=== PATIENT | female | born 2000 | race Caucasian/White ===

== ENCOUNTER 2024-03-19 20:27 | Emergency (ER) | payer BC, SELFPAY ==
--- NOTE | ~2024-03-19 | XR_ITS ---
EXAMINATION: XR CHEST 2 VIEWS CLINICAL INFORMATION: Cough and fever. COMPARISON: None. TECHNIQUE: Frontal and lateral views of the chest were obtained. FINDINGS: The heart, great vessels, pulmonary vasculature and mediastinum are normal. The lungs show no focal infiltrate, effusion or pneumothorax. There is no acute osseous abnormality. XR/XR chest 2V IMPRESSION: No active cardiopulmonary disease. Electronically signed by: Elliott Arana MD 03/19/2024 10:48 PM EDT
--- NOTE | 2024-03-19 20:32 | ED_ITS ---
HPI - General Adult General Chief complaint: Nausea/Vomiting/Diarrhea Stated complaint: vomiting/low fever/productive cough Time Seen by Provider: 03/19/24 21:53 Source: patient Mode of arrival: ambulatory Limitations: no limitations History of Present Illness ED Provider: Dr. Guerrier HPI narrative: Patient has been sick since Thursday, now with cough, N/V/D and can't hold anything down Onset (ago): day(s) Related Data Previous Rx's ?Medication ?Instructions ?Recorded ondansetron 4 mg disintegrating 4 mg PO Q8H 4 days #12 tabs 03/20/24 tablet [id number]-[id number] 5 10 ml PO Q4H #473 mL 03/20/24 mg-10 mg-100 mg/5 mL oral liquid Allergies Allergy/AdvReac Type Severity Reaction Status Date / Time prednisone Allergy Severe Unknown Verified 03/19/24 20:35 Review of Systems 2 Review of Systems: Yes all other systems are reviewed and are negative Neurologic: Denies Sensory deficit (Neuro) [facility] Social History Social History Smoked in Last 30 Days: Yes Substance Use Type: Marijuana Advance Directives: No Advance Directives Information Provided: No Do you have a plan to hurt others: No Plan Physical Exam ED Vital Signs: Vital Signs - 24 hr 03/19/24 20:33 03/19/24 21:45 Temperature 98.1 F 98.7 F Pulse Rate 91 92 Respiratory Rate 18 17 Blood Pressure 138/84 135/79 Pulse Oximetry 96 96 Oxygen Delivery Method Room Air Room Air BMI result Body Mass Index 37.0 Const Other: obese female spitting into a bottle Nutritional Appearance: obese Orientation/consciousness: oriented to person and patient oriented x3 Limitations: no limitations HENMT Head: Yes normal to inspection Ears: external ears normal General nose exam: Normal external nose present Mouth: Normal oral and palatal mucosa present and oropharynx normal Throat: Yes posterior oropharynx normal Eyes General: appearance normal, both eyes and all related structures Neck Neck: Yes normal visual inspection Chest Chest palpation & inspection: normal inspection of the chest Resp Auscultation: clear to auscultation bilaterally Cardio Jugular venous distension: no JVD Rate: regular rate Rhythm: regular rhythm Heart sounds: S1 normal heart sound present and S2 normal heart sound present GI Inspection: Yes normal to inspection Palpation (GI): Soft to palpation, nontender and No hepatosplenomegaly present Auscultation: normal bowel sounds General: Yes no CVA tenderness Back/Spine/Pelvis Back: no CVA tenderness Skin General skin exam: no rashes or lesions noted Neuro General: oriented to person and patient oriented x3 Cranial nerves: Yes CN's II-XII intact bilaterally Motor exam (neuro): 5/5 motor strength present throughout Sensory Exam: No Sensory deficit (Neuro) Extrem General: Yes normal to inspection Psych Appearance: grossly normal Course Course Course Narrative: This is a rapid medical exam performed by Penny Carrington NP: Additional HPI, ROS, PE not included below will be deferred to primary provider. Patient is a 23-year-old female presenting with complaint of low grade fever, nausea, vomiting, diarrhea, took Covid test Tue which was negative. States also started menstrual period yesterday. Plan: viral serology, labs Reevaluation(s) Reevaluation #1: CXR negative, viral panel negative will dc on elly man for viral syndrome Time: 00:19 Medications Administered Discontinued Medications Generic Name Dose Route Start Last Admin Trade Name Freq PRN Reason Stop Dose Admin Guaifenesin 20 ml 03/19/24 22:04 03/19/24 22:27 Guaifenesin 200 Mg/10 Ml 10 Ml Liquid PO 03/19/24 22:05 20 ml ONCE ONE Administration Ondansetron HCl 4 mg 03/19/24 22:04 03/19/24 22:27 Ondansetron Odt 4 Mg Tab.Rapdis TRANSLINGU 03/19/24 22:05 4 mg ONCE ONE Administration Medical Decision Making Differential Diagnosis Differential Diagnoses: The differential diagnosis associated with the presentation includes (pneumonia, covid, rsv, influenza, UTI, ) Admission/Observation Consideration of admission/observation: Escalation of care including admission/observation considered (upon arrival patient considered for admission) Lab Data 03/19/24 20:46 03/19/24 20:46 Labs: Lab Results 03/19/24 03/19/24 03/19/24 Range/Units 20:45 20:46 22:59 WBC 7.7 (4.8-10.8) X10*3/uL RBC 3.94 L (4.20-5.50) X10*6/uL Hgb 11.9 L (12.0-16.0) g/dl Hct 34.2 L (37.0-47.0) % MCV 86.8 (80.0-98.0) fL MCH 30.2 (27.0-33.0) pg MCHC 34.8 (31.0-35.0) g/dl RDW 11.9 (11.0-16.0) % Plt Count 250 (160-400) X10*3/uL MPV 10.4 (9.4-12.3) fL Immature Gran % (Auto) 0.3 (0.0-0.4) % Neut % (Auto) 70.1 (45-73) % Lymph % (Auto) 18.4 L (20-40) % Delta % (Auto) 11.0 (2-11) % Eos % (Auto) 0.1 (0-4) % Baso % (Auto) 0.1 (0-2) % Lymph # (Auto) 1.4 (1.2-4.9) X10*3/uL Delta # (Auto) 0.8 (0.1-1.2) X10*3/uL Eos # (Auto) 0.0 (0.0-0.4) X10*3/uL Baso # (Auto) 0.0 (0.0-0.2) X10*3/uL Abs Immat Gran (auto) 0.02 (0.00-0.03) X10*3/uL Absolute Neuts (auto) 5.4 (2.0-8.3) x10*3/uL Absolute Nucleated RBC 0.000 (0.0-0.012) X10*3/uL Nucleated RBC % (auto) 0.0 (0.0-0.2) /100WBC Sodium 140 (135-145) mmol/L Potassium 3.3 (3.3-5.1) mmol/L Chloride 104 (96-108) mmol/L Carbon Dioxide 25 (22-29) mmol/L Anion Gap 14 (12-20) BUN 9 (9-16) mg/dL Creatinine 0.73 (0.5-1.4) mg/dL Estim Creat Clear Calc 148.4 Estimated GFR > 60 Random Glucose 88 (60-115) mg/dL Calcium 9.0 (8.4-10.2) mg/dL Magnesium 2.1 (1.6-2.6) mg/dL Total Bilirubin 0.9 (0.0-1.0) mg/dL AST 34 H (5-31) U/L ALT 68 H (0-31) U/L Alkaline Phosphatase 105 (39-117) U/L Total Protein 8.6 H (6.5-8.0) g/dL Albumin 4.6 (3.5-5.0) g/dL Beta HCG, Quant < 2 mIU/mL Urine Color Dark Yellow Urine Appearance Clear Urine pH 6.0 (5.0-9.0) Ur Specific [place] >= 1.030 H (1.005-1.025) Urine Protein 30 (1+) H (Neg-Trace) mg/dL Urine Glucose (UA) Negative (Negative) mg/dL Urine Ketones 80 (Negative) mg/dL Urine Blood Moderate (2+) H (Negative) Urine Nitrite Negative (Negative) Ur Leukocyte Esterase Trace H (Negative) Urine RBC 11-20 H (0-2) /HPF Urine WBC 0-5 (0-5) /HPF Ur Squamous Epith Cells 11-20 (0-2) /HPF Urine Bacteria None Seen (None Seen) Hyaline Casts 0-2 (0-2) /LPF Urine Test NEGATIVE (NEGATIVE) Influenza Type A (PCR) NEGATIVE (Negative) Influenza Type B (PCR) NEGATIVE (Negative) RSV RNA Qual (PCR) NEGATIVE (Negative) SARS-CoV-2 RNA (RT-PCR) NEGATIVE (Negative) S. pyogenes GrpA [place]TON Negative (Negative) Independent Interpretation I performed an independent interpretation of an: Plain X-Ray (CXR: no infiltrate) Independent Historian Clinical information obtained from an independent historian. History obtained from or confirmed by: Parent Prescription Management I considered prescription management with: Antibiotic (no evidence of pneumonia) Discharge Plan Discharge Clinical Impression: Acute upper respiratory infection, Gastroenteritis Patient Disposition: Home, Self-Care Instructions: Upper Respiratory Infection (DC), Gastroenteritis (ED) Additional Instructions: salt water gargles for throat, clear liquids for 72 hours until diarrhea stops Prescriptions: New ondansetron 4 mg tablet,disintegrating 4 mg PO Q8H 4 Days Qty: 12 0RF wklglgkbyzjuy-NI-usoeutkjnvu 5-10-100 mg/5 mL liquid 10 ml PO Q4H Qty: 473 0RF Referrals: Physician,None [Primary Care Provider] - 1 week Print Language: Vietnamese
[2024-03-19 20:33] VITALS: BP 138/84; PULSE 91; RESP 18; TEMP 36.7; O2SAT 96; BMI 37.0
[2024-03-19 20:55] LABS: MANUAL DIFF FLAG NO
[2024-03-19 20:57] LABS: Basophils Percent Auto 0.1 % (0-2); Eosinophils Percent Auto 0.1 % (0-4); Hematocrit 34.2 % (37.0-47.0); Hemoglobin 11.9 g/dl (12.0-16.0); Imm Gran Abs Auto 0.02 X10*3/uL (0.00-0.03); Imm Gran Pct Auto 0.3 % (0.0-0.4); Lymphocytes Absolute Auto 1.4 X10*3/uL (1.2-4.9); Lymphocytes Percent Auto 18.4 % (20-40); Mean Corpuscular HGB Conc 34.8 g/dl (31.0-35.0); Mean Corpuscular Hemoglobin 30.2 pg (27.0-33.0); Mean Corpuscular Volume 86.8 fL (80.0-98.0); Mean Platelet Volume 10.4 fL (9.4-12.3); Monocytes Absolute Auto 0.8 X10*3/uL (0.1-1.2); Neutrophils Absolute Auto 5.4 x10*3/uL (2.0-8.3); Neutrophils Percent Auto 70.1 % (45-73); Platelet Count 250 X10*3/uL (160-400); Red Blood Count 3.94 X10*6/uL (4.20-5.50); Red Cell Distribution Width 11.9 % (11.0-16.0); White Blood Count 7.7 X10*3/uL (4.8-10.8)
[2024-03-19 21:06] LABS: IDNOW Serial# 08D9AD1C; Strep A Nucleic Acid Negative (Negative)
[2024-03-19 21:19] LABS: Alanine Aminotransferase 68 U/L (0-31); Albumin Level 4.6 g/dL (3.5-5.0); Alkaline Phosphatase 105 U/L (39-117); Anion Gap 14 (12-20); Aspartate Amino Transferase 34 U/L (5-31); Bilirubin Total 0.9 mg/dL (0.0-1.0); Blood Urea Nitrogen 9 mg/dL (9-16); Carbon Dioxide 25 mmol/L (22-29); Chloride 104 mmol/L (96-108); Creatinine Clr Calc Pharmacy 148.4; Estimated Glomerular Filt Rate > 60; Glucose Random 88 mg/dL (60-115); HCG Quantitative < 2 mIU/mL; Magnesium 2.1 mg/dL (1.6-2.6); Potassium 3.3 mmol/L (3.3-5.1); Sodium 140 mmol/L (135-145); Total Protein 8.6 g/dL (6.5-8.0)
[2024-03-19 21:34] LABS: Influenza A PCR NEGATIVE (Negative); Influenza B PCR NEGATIVE (Negative); Resp Syncy Virus RNA Qual PCR NEGATIVE (Negative); SARS COV2 PCR INHOUSE NEGATIVE (Negative)
[2024-03-19 21:45] VITALS: BP 135/79; PULSE 92; RESP 17; TEMP 37.1; O2SAT 96
--- NOTE | 2024-03-19 22:03 | PC.NURSE ---
pt from lobby, assume care of pt at this time
[2024-03-19] MEDS: Ondansetron ODT 4 MG TAB.RAPDIS TRANSLINGU (22:27)
[2024-03-19] MEDS: guaiFENesin 200 MG/10 ML 10 ML LIQUID 20 ML PO (22:27)
--- NOTE | 2024-03-19 23:04 | PC.NURSE ---
pt keeps coughing up clear sputum and spitting it out. pt has a barking cough. Mother at bedside
[2024-03-19 23:07] LABS: Appearance Urine Clear; Color Urine Dark Yellow; Glucose Urine UA Negative (Negative); Leukocyte Esterase Urine Trace (Negative); Nitrite Urine Negative (Negative); Specific Gravity - Urine >= 1.030 (1.005-1.025); UMIC TRIGGER UACC YES; UPreg QC Valid YES; Urine Blood Moderate (2+) (Negative); Urine Ketones 80 mg/dL (Negative); Urine Pregnancy NEGATIVE (NEGATIVE); Urine Protein 30 (1+) mg/dL (Neg-Trace)
[2024-03-19 23:09] LABS: Bacteria Urine None Seen (None Seen); Hyaline Casts Urine 0-2 /LPF (0-2); WBC Urine 0-5 /HPF (0-5)
[2024-03-20 00:46] VITALS: BP 135/79; PULSE 92; RESP 17; TEMP 37.1; O2SAT 96
== END 2024-03-20 00:48 | disposition home or self-care (01) ==
PROVIDERS: Registered Nurse Emergency; Emergency Provider Emergency Medicine
DX: J06.9 Acute upper respiratory infection, unspecified (principal); K52.9 Noninfective gastroenteritis and colitis, unspecified; R05.9 Cough, unspecified; R11.2 Nausea with vomiting, unspecified; Z03.818 Encounter for observation for suspected exposure to other biological agents ruled out
CPT/HCPCS: 0241U; 71046; 80053; 81001; 81025; 83735; 84702; 85025; 87651; 99283; 99284